=== PATIENT | male | born 1960 | race Caucasian/White ===

== ENCOUNTER 2017-04-25 14:36 | Inpatient (IN) | payer OTHER ==
[~2017-04-25] VITALS: Ht 182.8 cm; Wt 86.8 kg
[~2017-04-25 14:36] MED LIST: DAYPRO600 M1 PO; MEDROL DOSEPAK4 MG PO; PERCOCET 325 MG1 TA7 PO; PHENERGAN W/DM120 ML PO; PHENERGAN25 M1 PO; SEPTRA DS 800 M1 TAB PO; SKELAXIN800 MG PO; SUBOXONE 2 MG-01 TA1 SL; TRAZADONE HYDR100 MG PO; VENTOLIN 02.5 MG/3 M INH; VENTOLIN H0.09 MG/AC INH; VIBRAMYCIN100 MG PO; ZITHROMAX250 MG PO
[2017-04-25 14:42] VITALS: BP 154/86
[2017-04-25 15:03] LABS: BASO # 0.1 10*3/uL (0.0-0.1); BASO % 0.7 % (0.0-1.0); EOS # 0.2 10*3/uL (0.0-0.4); EOS % 2.2 % (1.0-4.0); HEMATOCRIT 46.4 % (42.0-52.0); HEMOGLOBIN 15.3 g/dl (14.0-18.0); LYMPH # 2.3 10*3/uL (1.3-4.4); LYMPH % 26.2 % (27.0-41.0); MEAN CELL VOLUME 88.2 fl (80.0-94.0); MEAN CORPUSCULAR HGB 29.1 pg (27.0-31.0); MEAN PLATELET VOLUME 10.3 fl (9.6-12.3); MONO # 0.7 10*3/uL (0.1-1.0); MONO % 8.3 % (3.0-9.0); NEUT # 5.4 10*3/uL (2.3-7.9); NEUT % 62.3 % (47.0-73.0); PLATELET COUNT AUTOMATED 204 10*3/uL (130-400); RED BLOOD COUNT 5.26 10*6/uL (4.50-5.90); RED CELL DISTRI WIDTH 13.6 % (0-14.5); WHITE BLOOD COUNT 8.7 10*3/uL (4.8-10.8)
[2017-04-25 15:14] LABS: ACT PARTIAL THROMBO TIME 26.3 SECONDS (20.8-31.5); INTERNATIONAL NORM RATIO 1.1 (2.0-3.5)
[2017-04-25 15:19] LABS: ALBUMIN 3.9 gm/dl (3.1-4.5); ALKALINE PHOSPHATASE 65 U/L (45-117); BUN 17 mg/dl (7-24); CHLORIDE 102 mmol/L (98-107); CREATININE 1.24 mg/dL (0.70-1.30); MAGNESIUM 2.2 mg/dL (1.5-2.1); POTASSIUM 4.1 mmol/L (3.5-5.1); SGOT/AST 14 IU/L (3-35); SGPT/ALT 21 U/L (12-78); SODIUM 137 mmol/L (136-145); TOTAL PROTEIN 7.8 gm/dL (6.4-8.2)
[2017-04-25 15:22] LABS: TROPONIN I < 0.015 ng/ml (<0.045)
--- NOTE | 2017-04-25 16:21 | NUR ---
REPORT GIVEN TO TAE RN ON 4E. PATIENT PREPARED FOR TRANSFER TO FLOOR. CONDITION STABLE.
[2017-04-25 16:40] VITALS: BP 144/72
--- NOTE | 2017-04-25 16:40 | NUR ---
A 56, admitted to , under the services of OPHELIA Tafoya DO with a diagnosis of CHEST PAIN, RULE OUT ACUTE MN. Chief complaint is CHEST PAIN. Patient arrived via bed from ER. Monitor applied. Initial assessment completed. Vital signs taken and recorded. OPHELIA TAFOYA DO notified of admission to the unit. Orders received. See assessment for past medical history, medications and allergies. Patient and/or family oriented to unit. [facility] visitation policy reviewed. Clothing/patient valuable form completed. TAE GOTTI
--- NOTE | 2017-04-25 16:43 | NUR ---
TRANSPORTED TO [facility]. CONDITION STABLE. AT BEDSIDE.
[2017-04-25] MEDS ORDERED: SUBOXONE 8 MG-1 EACH SL (16:48)
[2017-04-25 20:00] VITALS: BP 138/84
--- NOTE | 2017-04-26 00:53 | NUR ---
0000 VITALS NOT DONE PER PATIENT REQUEST.
[2017-04-26 07:12] LABS: BASO # 0.1 10*3/uL (0.0-0.1); BASO % 0.9 % (0.0-1.0); EOS # 0.2 10*3/uL (0.0-0.4); EOS % 3.3 % (1.0-4.0); HEMOGLOBIN 15.5 g/dl (14.0-18.0); LYMPH # 1.8 10*3/uL (1.3-4.4); LYMPH % 27.8 % (27.0-41.0); MEAN CELL VOLUME 86.7 fl (80.0-94.0); MEAN CORPUSCULAR HGB 28.6 pg (27.0-31.0); MEAN PLATELET VOLUME 10.2 fl (9.6-12.3); MONO # 0.6 10*3/uL (0.1-1.0); MONO % 9.2 % (3.0-9.0); NEUT # 3.9 10*3/uL (2.3-7.9); NEUT % 58.5 % (47.0-73.0); PLATELET COUNT AUTOMATED 194 10*3/uL (130-400); RED BLOOD COUNT 5.42 10*6/uL (4.50-5.90); RED CELL DISTRI WIDTH 13.6 % (0-14.5); WHITE BLOOD COUNT 6.6 10*3/uL (4.8-10.8)
[2017-04-26 07:55] LABS: ALBUMIN 3.7 gm/dl (3.1-4.5); ALKALINE PHOSPHATASE 61 U/L (45-117); BUN 17 mg/dl (7-24); CHLORIDE 104 mmol/L (98-107); CHOLESTEROL 292 mg/dL (<200); CREATININE 0.95 mg/dL (0.70-1.30); FREE T4 0.95 ng/dl (0.76-1.46); HDL CHOLESTEROL 49 mg/dl (40-60); LDL CHOLESTEROL 210 mg/dL (9-159); PHOSPHOROUS 2.9 mg/dL (2.5-4.9); POTASSIUM 4.9 mmol/L (3.5-5.1); SGOT/AST 15 IU/L (3-35); SGPT/ALT 22 U/L (12-78); SODIUM 139 mmol/L (136-145); TOTAL PROTEIN 7.3 gm/dL (6.4-8.2); TRIGLYCERIDES 166 mg/dl (<150); VLDL CHOLESTEROL 33 mg/dL (6-40)
[2017-04-26 08:00] VITALS: BP 150/88
[2017-04-26 08:08] LABS: ACT PARTIAL THROMBO TIME 25.7 SECONDS (20.8-31.5)
[2017-04-26 08:39] LABS: VITAMIN D, 25-HYDROXY 34.8 ng/mL (30-100)
[2017-04-26] MEDS ORDERED: ATENOLOL25 MG PO (10:32)
[2017-04-26] MEDS ORDERED: ATORVASTATIN CA80 M1 PO (10:32)
--- NOTE | 2017-04-26 11:14 | NUR ---
DISCHARGED TOHOMEPT VERBALIZED GOOD UNDERSTANDING OF FOLLOW UP AND HOME CARE
== END 2017-04-26 11:14 | disposition home or self-care (01) | DRG 206 ==
LOC: ED 14:36 → EDHOLD 16:05 → 4E 16:06
PROVIDERS: Emergency Medicine; Hospitalist; ADMIT Internal Medicine
DX: M94.0 Chondrocostal junction syndrome [Tietze] (principal); E78.5 Hyperlipidemia, unspecified; G89.29 Other chronic pain; I10 Essential (primary) hypertension; M54.9 Dorsalgia, unspecified; Z79.899 Other long term (current) drug therapy; Z90.49 Acquired absence of other specified parts of digestive tract; Z72.0 Tobacco use; Z71.6 Tobacco abuse counseling

== ENCOUNTER 2018-08-02 20:20 | Emergency (ER) | payer OTHER ==
[~2018-08-02] VITALS: Ht 182.8 cm; Wt 88.5 kg
--- NOTE | ~2018-08-02 | EKG ---
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
[~2018-08-02 20:20] MED LIST changes: +ATENOLOL25 MG PO; +ATORVASTATIN CA80 M1 PO; +SUBOXONE 8 MG-1 EACH SL
[2018-08-02 20:59] LABS: BASO # 0.1 10*3/uL (0.0-0.1); BASO % 0.8 % (0.0-1.0); EOS # 0.3 10*3/uL (0.0-0.4); EOS % 3.7 % (1.0-4.0); HEMOGLOBIN 14.9 g/dl (14.0-18.0); LYMPH # 2.6 10*3/uL (1.3-4.4); LYMPH % 29.4 % (27.0-41.0); MEAN CORPUSCULAR HGB 28.8 pg (27.0-31.0); MEAN CORPUSCULAR HGB CONC 32.4 g/dl (33.0-37.0); MEAN PLATELET VOLUME 10.7 fl (9.6-12.3); MONO # 0.8 10*3/uL (0.1-1.0); MONO % 9.4 % (3.0-9.0); NEUT % 56.4 % (47.0-73.0); PLATELET COUNT AUTOMATED 226 10*3/uL (130-400); RED BLOOD COUNT 5.17 10*6/uL (4.50-5.90); RED CELL DISTRI WIDTH 13.4 % (0-14.5); WHITE BLOOD COUNT 8.8 10*3/uL (4.8-10.8)
[2018-08-02 21:05] VITALS: BP 123/78
[2018-08-02 21:17] LABS: ALBUMIN 3.6 gm/dl (3.1-4.5); ALKALINE PHOSPHATASE 67 U/L (45-117); BUN 18 mg/dl (7-24); CHLORIDE 101 mmol/L (98-107); CREATININE 1.01 mg/dL (0.70-1.30); POTASSIUM 4.1 mmol/L (3.5-5.1); SGOT/AST 15 IU/L (3-35); SGPT/ALT 23 U/L (12-78); SODIUM 137 mmol/L (136-145); TOTAL PROTEIN 7.6 gm/dL (6.4-8.2)
[2018-08-02 21:20] LABS: ETHYL ALCOHOL < 3.0 mg/dl (<3); TROPONIN I < 0.015 ng/ml (<0.045)
== END 2018-08-02 22:06 | disposition home or self-care (01) ==
LOC: ED 20:20
PROVIDERS: Physician Assistant
DX: R42 Dizziness and giddiness (principal); R51 Headache; R20.8 Other disturbances of skin sensation; R23.2 Flushing

== ENCOUNTER 2019-01-14 13:36 | Emergency (ER) | payer OTHER ==
[~2019-01-14] VITALS: Ht 182.8 cm; Wt 89.4 kg
[~2019-01-14 13:36] MED LIST changes: +ATORVASTATIN CA40 M1 PO; +LISINOPRIL10 M1 PO
[2019-01-14 13:39] VITALS: BP 130/80
[2019-01-14] MEDS ORDERED: KETOROLAC10 MG PO (21:50)
[2019-01-14] MEDS ORDERED: CYCLOBENZAPRINE5 M3 PO (21:50)
[2019-01-14] MEDS ORDERED: PREDNISONE10 MG PO (21:50)
== END 2019-01-15 ==
LOC: ED 13:36
DX: M54.5 Low back pain (principal); Z53.21 Procedure and treatment not carried out due to patient leaving prior to being seen by health care provider

== ENCOUNTER 2019-01-14 20:01 | Emergency (ER) | payer OTHER ==
[~2019-01-14] VITALS: Ht 182.8 cm; Wt 89.4 kg
[2019-01-14 20:02] VITALS: BP 163/81
[2019-01-14] MEDS ORDERED: PREDNISONE10 MG PO (21:50)
[2019-01-14] MEDS ORDERED: KETOROLAC10 MG PO (21:50)
[2019-01-14] MEDS ORDERED: CYCLOBENZAPRINE5 M3 PO (21:50)
== END 2019-01-14 22:02 | disposition home or self-care (01) ==
LOC: ED 20:01
DX: S39.012A Strain of muscle, fascia and tendon of lower back, initial encounter (principal); G89.29 Other chronic pain; I10 Essential (primary) hypertension; E78.5 Hyperlipidemia, unspecified; F17.200 Nicotine dependence, unspecified, uncomplicated; Z79.899 Other long term (current) drug therapy; Z90.49 Acquired absence of other specified parts of digestive tract; W19.XXXA Unspecified fall, initial encounter; Y93.H2 Activity, gardening and landscaping; Y92.098 Other place in other non-institutional residence as the place of occurrence of the external cause; Y99.8 Other external cause status

== ENCOUNTER 2019-07-09 19:42 | Emergency (ER) | payer OTHER ==
[~2019-07-09] VITALS: Ht 182.8 cm; Wt 92.1 kg
[2019-07-09 19:42] VITALS: BP 174/89
[~2019-07-09 19:42] MED LIST changes: +CYCLOBENZAPRINE5 M3 PO; +KETOROLAC10 MG PO; +PREDNISONE10 MG PO
[2019-07-10] MEDS ORDERED: DOXYCYCLINE100 M3 PO (14:17)
[2019-07-10] MEDS ORDERED: FLONASE ALLERG9.9 ML NAS (14:17)
== END 2019-07-09 21:10 | disposition left against medical advice (07) ==
LOC: ED 19:42
DX: R51 Headache (principal); Z53.21 Procedure and treatment not carried out due to patient leaving prior to being seen by health care provider

== ENCOUNTER 2019-07-10 12:34 | Emergency (ER) | payer OTHER ==
[~2019-07-10] VITALS: Wt 86.2 kg
[2019-07-10 12:47] VITALS: BP 188/99
[2019-07-10] MEDS ORDERED: FLONASE ALLERG9.9 ML NAS (14:17)
[2019-07-10] MEDS ORDERED: DOXYCYCLINE100 M3 PO (14:17)
== END 2019-07-10 14:40 | disposition home or self-care (01) ==
LOC: ED 12:34
DX: J01.90 Acute sinusitis, unspecified (principal); I10 Essential (primary) hypertension; F17.200 Nicotine dependence, unspecified, uncomplicated; Z90.49 Acquired absence of other specified parts of digestive tract; Z88.1 Allergy status to other antibiotic agents; Z79.899 Other long term (current) drug therapy

== ENCOUNTER → 2020-05-30 | Outpatient (CLI) | payer OTHER ==
[~2020-05-30] MED LIST changes: +DOXYCYCLINE100 M3 PO; +FLONASE ALLERG9.9 ML NAS
== END | disposition home or self-care (01) ==
LOC: COVID19 09:08
PROVIDERS: ATTEND Nurse Practitioner Family
DX: R09.81 Nasal congestion (principal); I10 Essential (primary) hypertension; F17.210 Nicotine dependence, cigarettes, uncomplicated; R05 Cough; Z20.828 Contact with and (suspected) exposure to other viral communicable diseases

== ENCOUNTER → 2021-07-10 | Outpatient (CLI) | payer OTHER | LOC: COVID19 14:56 | PROVIDERS: ATTEND Internal Medicine | DX: Z11.52 Encounter for screening for COVID-19 (principal); Z20.822 Contact with and (suspected) exposure to COVID-19 ==

== ENCOUNTER → 2023-09-18 | Outpatient (CLI) | payer OTHER | END | disposition home or self-care (01) | LOC: CT 02:21 | PROVIDERS: ATTEND Nurse Practitioner Family | DX: J84.10 Pulmonary fibrosis, unspecified (principal); J43.9 Emphysema, unspecified; I25.10 Atherosclerotic heart disease of native coronary artery without angina pectoris; F17.210 Nicotine dependence, cigarettes, uncomplicated ==

== ENCOUNTER → 2025-03-14 | Day surgery (SDC) | payer OTHER ==
[~2025-03-14] VITALS: Ht 182.8 cm; Wt 88.9 kg
[~2025-03-14] MED LIST changes: +ALBUTEROL2.5 MG/0.5 INH; +DULERA 200 MCG-13 GM INH; +Lactated Ringer's Solution 1,000 ML IV ONE; +Lidocaine Hydrochloride 2% 5 ML SDV IV ONE; +NORVASC5 MG PO; +PROPOFOL 200 MG/20 ML VIAL IV ONE; +SPIRIVA RESPIMAT4 GM INH
[2025-03-14 06:36] VITALS: BP 150/96
[2025-03-14 07:30] VITALS: BP 121/76
[2025-03-14 07:49] VITALS: BP 149/87
[2025-03-14 08:05] VITALS: BP 155/98
== END | disposition home or self-care (01) ==
LOC: SDC 03-11 10:15
PROVIDERS: ATTEND Surgery
DX: Z12.11 Encounter for screening for malignant neoplasm of colon (principal); Z53.8 Procedure and treatment not carried out for other reasons; I10 Essential (primary) hypertension; E78.5 Hyperlipidemia, unspecified; F11.90 Opioid use, unspecified, uncomplicated; J44.9 Chronic obstructive pulmonary disease, unspecified; F17.200 Nicotine dependence, unspecified, uncomplicated; Z98.890 Other specified postprocedural states; Z88.8 Allergy status to other drugs, medicaments and biological substances; Z90.49 Acquired absence of other specified parts of digestive tract; Z80.0 Family history of malignant neoplasm of digestive organs; Z79.899 Other long term (current) drug therapy

== ENCOUNTER → 2025-05-14 | Outpatient (CLI) | payer OTHER ==
[~2025-05-14] MED LIST changes: -Lactated Ringer's Solution 1,000 ML IV ONE; -Lidocaine Hydrochloride 2% 5 ML SDV IV ONE; -PROPOFOL 200 MG/20 ML VIAL IV ONE
== END | disposition home or self-care (01) ==
LOC: CT 01:02
PROVIDERS: ATTEND Internal Medicine
DX: Z12.2 Encounter for screening for malignant neoplasm of respiratory organs (principal); J43.2 Centrilobular emphysema; R91.1 Solitary pulmonary nodule; F17.210 Nicotine dependence, cigarettes, uncomplicated; I70.0 Atherosclerosis of aorta; I25.10 Atherosclerotic heart disease of native coronary artery without angina pectoris; M95.4 Acquired deformity of chest and rib; M47.814 Spondylosis without myelopathy or radiculopathy, thoracic region

== ENCOUNTER 2025-06-25 01:10 | Emergency (ER) | payer OTHER ==
[~2025-06-25] VITALS: Ht 182.8 cm; Wt 93.0 kg
[2025-06-25] MEDS ORDERED: Albuterol Sulf/Ipratropium 3 ML VIAL NEB ONE (01:15)
[2025-06-25 01:17] VITALS: BP 167/96
[2025-06-25 01:33] LABS: BASO # 0.1 10*3/uL (0.0-0.1); BASO % 0.9 % (0.0-1.0); EOS # 0.3 10*3/uL (0.0-0.4); EOS % 3.0 % (1.0-4.0); MEAN CELL VOLUME 89.8 fl (80.0-94.0); MEAN CORPUSCULAR HGB 28.9 pg (27.0-31.0); MEAN PLATELET VOLUME 11.4 fl (9.6-12.3); MONO # 0.9 10*3/uL (0.1-1.0); MONO % 10.5 % (3.0-9.0); NEUT # 5.3 10*3/uL (2.3-7.9); NEUT % 61.5 % (47.0-73.0); NUCLEATED RED BLOOD CELL 0.0 % (0.0-0.0); NUCLEATED RED BLOOD CELL 0.0 10*3/uL (0.0-0.0); PLATELET COUNT AUTOMATED 222 10*3/uL (130-400); RED CELL DISTRI WIDTH 13.5 % (0-14.5)
[2025-06-25 02:10] LABS: ACT PARTIAL THROMBO TIME 25.6 SECONDS (20.0-32.1)
[2025-06-25 02:18] LABS: BUN 15 mg/dl (9-23)
[2025-06-25] MEDS ORDERED: SODIUM CHLORIDE 0.9% 1,000 ML IV ONE (02:27)
[2025-06-25] MEDS ORDERED: PREDNISONE20 M1 PO (05:19)
[2025-06-25] MEDS ORDERED: AVPAK AZITHROM250 MG PO (05:19)
== END 2025-06-25 05:27 | disposition home or self-care (01) ==
LOC: ED 01:10
PROVIDERS: Internal Medicine
DX: J44.9 Chronic obstructive pulmonary disease, unspecified (principal); E78.00 Pure hypercholesterolemia, unspecified; J45.909 Unspecified asthma, uncomplicated; I10 Essential (primary) hypertension; F17.290 Nicotine dependence, other tobacco product, uncomplicated; Z98.890 Other specified postprocedural states; Z88.1 Allergy status to other antibiotic agents; Z88.8 Allergy status to other drugs, medicaments and biological substances; Z90.49 Acquired absence of other specified parts of digestive tract